=== PATIENT | male | born 1970 | race Caucasian/White ===

== ENCOUNTER 2017-02-05 20:12 | Emergency (ER) | payer OTHER ==
[2017-02-05 20:15] VITALS: Ht 182.9 cm
[2017-02-05] MEDS ORDERED: SODIUM CHLORIDE 0.9% 1000ML 1,000 ML IV STA (20:29)
[2017-02-05] MEDS ORDERED: MoRPHine SULFATE 10 MG/ML CARP/VIAL IV STA (20:29)
--- NOTE | 2017-02-05 20:40 | EMERGENCY ROOM VISIT NOTE ---
History First contact with patient: 20:19 Chief Complaint: ABDOMINAL PAIN Stated Complaint: LOWER ABD PAIN History of Present Illness The patient is a 46 year old male who presents to the Emergency Room with complaints of left lower abdominal pain that started abruptly 1 hour ago. Patient states this is a new problem he has never experienced before. Patient states he just finished eating dinner and went to lie down on the couch and play video games when he started to feel a sharp pain in his left lower abdomen. Pain quickly became severe. He rates the pain as sharp, constant, worse with movement, 10/10. The pain does not radiate. He denies any pain in the testicles or penis, dysuria, hematuria, penile discharge. He did not take any medications for the pain. He denies any chest pain, shortness of breath, back pain, nausea/vomiting, diarrhea, constipation, blood in the stool, fever/ chills. No significant past medical history. Review of Systems GENERAL: Denies fevers, chills, malaise, fatigue, unintentional weight changes. HEENT: Denies dizziness, visual problems, hearing loss, tinnitus. Denies difficulty swallowing or oral lesions. PULMONARY: Denies cough, shortness of breath, sputum production or hemoptysis. CARDIOVASCULAR: Denies chest pain, palpitations, dyspnea on exertion, orthopnea or peripheral edema. GASTROINTESTINAL: + Abdominal pain. Denies diarrhea, constipation, nausea, vomiting, or hematochezia. GENITOURINARY: Denies dysuria, frequency, urgency or nocturia. Denies hematuria. NEUROLOGIC: Denies history of epilepsy, CVA, TIA or chronic headaches. MUSCULOSKELETAL: Denies history of joint tenderness/swelling. SKIN: Denies rashes or lesions. PSYCHIATRIC: Denies history of depression or mental illness. ENDOCRINE: Denies history of diabetes, thyroid disorders, abnormal hair growth or sexual dysfunction. Social History Smoking Status: Never Smoker Current/Historical Medications No Active Prescriptions or Reported Meds Allergies Coded Allergies: Amoxicillin (Unverified Allergy, Severe, CHILDHOOD ALLERGY TEST/RASH, ) Ampicillin (Unverified Allergy, Severe, CHILDHOOD ALLERGY TEST/RASH, ) Penicillins (Unverified Allergy, Severe, CHILDHOOD ALLERGY TEST/RASH, ) Physical Exam Vital Signs Date Time Temp Pulse Resp B/P (MAP) Pulse Ox O2 Delivery O2 Flow Rate FiO2 02/05/17 21:32 132/70 02/05/17 21:20 70 16 96 02/05/17 21:13 70 02/05/17 20:47 36.5 69 16 114/73 99 Room Air 02/05/17 20:15 93 20 140/91 99 Room Air Physical Exam CONSTITUTIONAL: No acute distress, but appears very uncomfortable and in pain. Well appearing and well nourished, well hydrated. Nontoxic appearing. Alert and oriented X 4 with normal affect. HEENT: Normocephalic, atraumatic. Pupils equal, round and reactive to light, EOMI. TMs normal. Pharynx normal. NECK: Supple, full active range of motion without discomfort. RESPIRATORY: Clear to auscultation bilaterally with no wheezing, crackles, rhonchi or stridor. Equal expansion bilaterally. CARDIOVASCULAR: Regular rate and rhythm with no murmurs, rubs or gallops. Normal peripheral perfusion. No edema. GASTROINTESTINAL: Moderate tenderness to palpation of the left lower quadrant and suprapubic region. Positive guarding, no rebound. No palpable hernia with Valsalva. Soft, nondistended. Normal bowel sounds present in all quadrants. MUSCULOSKELETAL: Full range of motion of all joints without discomfort. INTEGUMENTARY: No rash or other significant dermatologic conditions noted. NEUROLOGIC: Cranial nerves II-XII grossly intact. No focal neurologic deficits noted. Medical Decision & Procedures Laboratory Results 02/05/17 20:35 Red Blood Count 5.11, Mean Corpuscular Volume 86.9, Mean Corpuscular Hemoglobin 29.4, Mean Corpuscular Hemoglobin Concent 33.8, Mean Platelet Volume 9.5, Neutrophils (%) (Auto) 42.6, Lymphocytes (%) (Auto) 42.1, Monocytes (%) (Auto) 9.6, Eosinophils (%) (Auto) 4.4, Basophils (%) (Auto) 0.8, Neutrophils # (Auto) 2.63, Lymphocytes # (Auto) 2.60, Monocytes # (Auto) 0.59, Eosinophils # (Auto) 0.27, Basophils # (Auto) 0.05 02/05/17 20:35 Test 02/05/17 20:35 02/05/17 21:33 White Blood Count 6.17 K/uL (4.8-10.8) Red Blood Count 5.11 M/uL (4.7-6.1) Hemoglobin 15.0 g/dL (14.0-18.0) Hematocrit 44.4 % (42-52) Mean Corpuscular Volume 86.9 fL (80-100) Mean Corpuscular Hemoglobin 29.4 pg (25-34) Mean Corpuscular Hemoglobin Concent 33.8 g/dl (32-36) Platelet Count 251 K/uL (130-400) Mean Platelet Volume 9.5 fL (7.4-10.4) Neutrophils (%) (Auto) 42.6 % Lymphocytes (%) (Auto) 42.1 % Monocytes (%) (Auto) 9.6 % Eosinophils (%) (Auto) 4.4 % Basophils (%) (Auto) 0.8 % Neutrophils # (Auto) 2.63 K/uL (1.4-6.5) Lymphocytes # (Auto) 2.60 K/uL (1.2-3.4) Monocytes # (Auto) 0.59 K/uL (0.11-0.59) Eosinophils # (Auto) 0.27 K/uL (0-0.5) Basophils # (Auto) 0.05 K/uL (0-0.2) RDW Standard Deviation 41.5 fL (36.4-46.3) RDW Coefficient of Variation 12.9 % (11.5-14.5) Immature Granulocyte % (Auto) 0.5 % Immature Granulocyte # (Auto) 0.03 K/uL (0.00-0.02) Anion Gap 13.0 mmol/L (3-11) Estimated GFR () 84.7 Estimated GFR (Non- 73.1 BUN/Creatinine Ratio 15.2 (10-20) Calcium Level 9.0 mg/dl (8.5-10.1) Total Bilirubin 0.2 mg/dl (0.2-1) Direct Bilirubin mg/dl (0-0.2) Aspartate Amino Transf (AST/SGOT) 23 U/L (15-37) Alanine Aminotransferase (ALT/SGPT) 28 U/L (12-78) Alkaline Phosphatase 69 U/L (45-117) Total Protein 6.8 gm/dl (6.4-8.2) Albumin 3.8 gm/dl (3.4-5.0) Lipase 127 U/L (73-393) Chemistry Specimen Hemolysis Urine Color YELLOW Urine Appearance CLEAR (CLEAR) Urine pH 6.5 (4.5-7.5) Urine Specific [place] 1.023 (1.000-1.030) Urine Protein NEG (NEG) Urine Glucose (UA) NEG (NEG) Urine Ketones NEG (NEG) Urine Occult Blood NEG (NEG) Urine Nitrite NEG (NEG) Urine Bilirubin NEG (NEG) Urine Urobilinogen NEG (NEG) Urine Leukocyte Esterase NEG (NEG) Medications Administered Medications (Trade) Dose Ordered Sig/Sissy Route Start Time Stop Time Status Last Admin Dose Admin Sodium Chloride 1,000 ml @ 999 mls/hr Q1H1M STAT IV 02/05/17 20:29 02/05/17 21:29 DC 02/05/17 20:45 999 MLS/HR Medical Decision CC: Patient presenting with complaint of left lower abdominal pain Interpretation of Labs: No leukocytosis, no anemia, no significant electrolyte abnormalities, renal function, normal liver function and lipase, no UTI and no hematuria. Differential Diagnosis: Includes, but not limited to renal colic, ureteral stone , urinary tract infection, diverticulitis, pancreatitis, abdominal wall hernia, musculoskeletal pain/strain. Medication Reconciliation: I attest that I have personally reviewed the patient' s current medication list. Vital signs review: I reviewed the patient's vital signs and interpret them as follows: T: Afebrile; BP: Hypertensive; HR: Within normal limits; RR: Within normal limits; Pulse Ox: Within normal limits on room air. Reassessment vital signs: Hypertension resolved after pain controlled. Blood pressure screening: The patient was found to have normal blood pressure on screening and does not require follow-up for repeat blood pressure check. Summary: Patient was evaluated at bedside, history of physical exam performed. Patient is alert and oriented, in no acute distress but appears extremely uncomfortable due to pain. Patient has significant tenderness of the left lower quadrant with palpation. No rebound. No CVA tenderness bilaterally. Orders were placed at bedside for labs, UA, IV fluids and pain medication, CT abdomen/pelvis without contrast to evaluate for ureteral stone. Patient discussed with Dr. Rincon, who agrees with my assessment and plan. Labs reviewed, no skipped and abnormalities as discussed above. CT scan reviewed, no acute abnormalities, specifically no calculus. Moderate stool burden noted. Patient reassessed multiple times throughout ED stay, pain fully resolved after 1 dose of morphine and IV fluids. I discussed all results with the patient and plan for discharge home, encouraged him to follow closely with his PCP. Patient verbalized understanding and agreement with plan. Patient discharged home in stable condition, ambulatory. Impression Primary Impression: Acute left lower quadrant pain Departure Information Dispostion Home / Self-Care Condition GOOD Prescriptions No Active Prescriptions or Reported Meds Referrals No Doctor, Assigned (PCP) Patient Instructions ED Abdominal Pain Unkn Cause Male, My [facility] Additional Instructions You have been treated in the Emergency Department your Abdominal Pain. Laboratory results and imaging studies have ruled out any emergent causes for your abdominal pain which would warrant admission or surgery. You have been given a narcotic pain medication to treat your pain today. It is illegal for you to drive for 6 hours after receiving this medicine. For pain control, you can use the following [id number] medicines (if >12 yo): - Regular strength (325mg/tab) Tylenol (acetaminophen) 2 tabs every 4-6 hours as needed. Do not exceed 10 tablets in a 24 hour period. Avoid taking more than 3 grams (3000 mg) of Tylenol per day. This includes any other sources of acetaminophen you may take on a regular basis. - Regular strength (200 mg/tab) Advil (ibuprofen) 1-2 tabs every 4-6 hours as needed. Do not exceed a dose of 3200 mg per day. Drink plenty of water and stay well hydrated. As with any trip to the Emergency Department, you should follow-up with your Primary Care Provider in 1-2 days from today's visit. Return to the emergency department if your symptoms persist despite treatment plan outlined above or if the following symptoms occur: increased fevers, chills , worsening nausea/vomiting, blood in your stool or urine.
[2017-02-05 20:47] VITALS: TEMP 36.5
[2017-02-05 20:48] LABS: BASO % 0.8 %; BASO ABS # 0.05 K/uL (0-0.2); COMPLETE YES; EOS % 4.4 %; HEMATOCRIT 44.4 % (42-52); IG% 0.5 %; LYMPH % 42.1 %; MEAN CELL VOLUME 86.9 fL (80-100); MEAN CORPUSCULAR HEMOGLOBIN 29.4 pg (25-34); MEAN CORPUSCULAR HGB CONC 33.8 g/dl (32-36); MEAN PLATELET VOLUME 9.5 fL (7.4-10.4); MONO % 9.6 %; NEUT % 42.6 %; PLATELET COUNT 251 K/uL (130-400); RED BLOOD COUNT 5.11 M/uL (4.7-6.1); WHITE BLOOD COUNT 6.17 K/uL (4.8-10.8)
--- NOTE | 2017-02-05 21:16 | DIAGNOSTIC IMAGING REPORT ---
ABDOMEN AND PELVIS CT WITHOUT CONTRAST CT DOSE: 789.82 mGy.cm HISTORY: Flank pain, eval for stone TECHNIQUE: Multiaxial CT images of the abdomen and pelvis were performed without the use of intravenous and oral contrast according to the standard department stone protocol. COMPARISON STUDY: None. FINDINGS: The lung bases are clear. The unenhanced liver, gallbladder, spleen, pancreas, and adrenal glands are unremarkable. No renal stones or hydronephrosis. No bowel wall thickening or obstruction. The pelvic organs are unremarkable. No suspicious lytic or blastic osseous lesions. Normal appendix. IMPRESSION: No renal stones or hydronephrosis. Electronically signed by: Arik Boo M.D. 02/05/2017 9:14 PM Dictated Date/Time: 02/05/2017 9:09 PM
[2017-02-05 21:20] VITALS: PULSE 70; O2SAT 96
[2017-02-05 21:32] VITALS: BP 132/70
[2017-02-05 21:43] LABS: ALKALINE PHOSPHATASE 69 U/L (45-117); ALT/SGPT 28 U/L (12-78); AST/SGOT 23 U/L (15-37); BLOOD UREA NITROGEN 18 mg/dl (7-18); BUN/CREATININE RATIO 15.2 (10-20); CARBON DIOXIDE 23 mmol/L (21-32); CHLORIDE 105 mmol/L (98-107); GLUCOSE 184 mg/dl (70-99); POTASSIUM 3.5 mmol/L (3.5-5.1); SODIUM 141 mmol/L (136-145)
[2017-02-05 22:01] LABS: URINE APPEARANCE CLEAR (CLEAR); URINE BILIRUBIN NEG (NEG); URINE COLOR YELLOW; URINE NITRITE NEG (NEG); URINE PH 6.5 (4.5-7.5); URINE SPECIFIC GRAVITY 1.023 (1.000-1.030); UROBILINOGEN NEG (NEG)
[2017-02-05 22:13] LABS: MANUAL MICROSCOPIC REQUIRED? NO; REVIEW REQ? NO
== END 2017-02-05 22:48 | disposition home or self-care (01) ==
LOC: C.EDB 20:13 → C.EDC 22:48
DX: R10.32 Left lower quadrant pain (principal)